=== PATIENT | male | born 1935 | race Caucasian/White ===

== ENCOUNTER 2017-05-14 09:18 | Emergency (ER) | payer MEDICARE, OTHER ==
[2017-05-14 09:31] VITALS: BP 155/81
[2017-05-14] MEDS ORDERED: DEXAMETHASONE 10 MG/ML VIAL PO STA (10:06)
--- NOTE | 2017-05-14 10:12 | ED Physician Documentation ---
History of Present Illness - Stated complaint Stated Complaint: HAND SWOLLEN - Chief complaint Chief Complaint: Ext Problem - History obtained from History obtained from: Patient - History of Present Illness Timing: How many days ago (3) - Additonal information Additional information: 82-year-old male with history of hypertension who is on hydrochlorothiazide has developed pain and swelling in the left metacarpophalangeal joint of the second finger. He has had exquisite pain overnight he has had erythema to the area and has not had this previously Review of Systems Constitutional: denies: Fever, Myalgias, Fatigue, Sweats Respiratory: denies: Cough GI: denies: Vomiting, Constipation, Diarrhea : denies: Dysuria, Frequency Skin: denies: Rash Musculoskeletal: reports: Extremity pain, Joint pain, Joint swelling. denies: Neck pain, Back pain PD PAST MEDICAL HISTORY - Past Medical History Past Medical History: Yes Cardiovascular: Congestive heart failure, Hypertension Respiratory: None Endocrine/Autoimmune: HyPOthyroidism GI: Hiatal hernia : Benign prostate hypertrophy Psych: None Musculoskeletal: None Derm: None - Past Surgical History General: Appendectomy - Present Medications Home Medications: Ambulatory Orders Medication Instructions Recorded Confirmed Hydrochlorothiazide 25 mg PO DAILY 01/08/13 05/14/17 Levothyroxine [Synthroid] 0.05 mcg PO QDAC 01/08/13 05/14/17 Aspirin 325 mg PO DAILY 05/14/17 05/14/17 - Allergies Allergies/Adverse Reactions: Allergies Allergy/AdvReac Type Severity Reaction Status Date / Time No Known Drug Allergies Allergy Verified 05/14/17 09:24 - Social History Does the pt smoke?: No Smoking Status: Never smoker PD ED PE NORMAL - Vitals Vital signs reviewed: Yes (hypertensive ) - General General: Alert and oriented X 3, No acute distress, Well developed/nourished - HEENT HEENT: Atraumatic, PERRL, EOMI - Neck Neck: Supple, no meningeal sign - Respiratory Respiratory: No respiratory distress - Derm Derm: Normal color, Warm and dry - Extremities Extremities: Other (There is swelling and erythema to the 2nd MCP on the right with pain to any movement of the joint. There is no lymphangitic streaking. ) - Neuro Neuro: No motor deficit, No sensory deficit Eye Opening: Spontaneous Motor: Obeys Commands Verbal: Oriented GCS Score: 15 - Psych Psych: Normal mood, Normal affect Results - Vitals Vitals: Vital Signs - 24 hr 05/14/17 09:21 Temperature 36.0 C L Heart Rate 51 L Respiratory 18 Rate Blood Pressure 155/81 H O2 Saturation 98 Oxygen O2 Source Room air PD MEDICAL DECISION MAKING - ED course Complexity details: reviewed old records, considered differential, d/w patient, d/w family ED course: 82-year-old male with what appears to be gout in the left hand. He is given decadron in the ED and he leaves before we are able to formally disposition him. (extended code). Departure - Departure Disposition: 07 Against Medical Advice Clinical Impression: Gout Qualifiers: Gout site: hand Gout etiology: unspecified cause Chronicity: acute Laterality: left Qualified Code(s): M10.9 - Gout, unspecified Condition: Stable Discharge Date/Time: 05/14/17 11:15
[2017-05-14] MEDS ORDERED: DEXAMETHASONE 10 MG/ML VIAL ONE (10:19)
[2017-05-14] MEDS ORDERED: CHERRY SYRUP 10 ML UDC PO ONE (10:19)
== END 2017-05-14 11:15 | disposition left against medical advice (07) ==
LOC: ED 09:18
DX: M10.9 Gout, unspecified (principal); I11.0 Hypertensive heart disease with heart failure; I50.9 Heart failure, unspecified; E03.9 Hypothyroidism, unspecified; N40.0 Benign prostatic hyperplasia without lower urinary tract symptoms; Z79.82 Long term (current) use of aspirin
CPT/HCPCS: 99281; 99283; A9270